=== PATIENT | male | born 1960 | race Caucasian/White ===

== ENCOUNTER → 2019-12-03 | Outpatient (CLI) | payer MEDICARE | END | disposition home or self-care (01) | LOC: RAD 08:01 | PROVIDERS: ATTEND Orthopaedic Surgery | DX: M50.121 Cervical disc disorder at C4-C5 level with radiculopathy (principal); M48.02 Spinal stenosis, cervical region | CPT/HCPCS: 72141 ==

== ENCOUNTER → 2019-12-05 | Outpatient (CLI) | payer MEDICARE | END | disposition home or self-care (01) | LOC: RAD 08:08 | PROVIDERS: ATTEND Orthopaedic Surgery | DX: M50.322 Other cervical disc degeneration at C5-C6 level (principal) | CPT/HCPCS: 72050 ==

== ENCOUNTER 2019-12-10 10:08 | Emergency (ER) | payer MEDICARE ==
[~2019-12-10] VITALS: Ht 172.7 cm; Wt 98.2 kg
--- NOTE | 2019-12-10 10:43 | NUR ---
PATIENT HERE TODAY AT THE REQUEST OF HIS GI DOCTOR DUE TO LOW BP READINGS. PATIENT STATES HE HAS FALLEN TWICE IN THE LAST FEW DAYS, HE GETS UP AND FEELS DIZZY THEN FALLS. PATIENT WAS TOLD TO STOP HIS DIURETIC YESTERDAY BY GI DOCTOR. BP AT THIS TIME IS 86/52, PATIENT A&OX4, NO C/O OF PAIN AT THIS TIME. 20 GAUGE IV STARTED, ERMD AT BEDSIDE FOR EVALUATION.
[2019-12-10] MEDS ORDERED: SODIUM CHLORIDE 0.9% 1,000ML IVBOLUS ONE (11:00)
[2019-12-10] MEDS ORDERED: SODIUM CHLORIDE FLUSH 10ML SYR IVF ONE (11:00)
--- NOTE | 2019-12-10 11:07 | NUR ---
URINE SAMPLE COLLECTED AND SENT TO LAB. 1L FLUID BOLUS STARTED.
[2019-12-10 11:19] LABS: MICROSCOPIC NOT IND
[2019-12-10 11:20] LABS: ALANINE AMINOTRANSFERASE 34 U/L (12-78); ALBUMIN 3.5 g/dL (3.4-5.0); ANION GAP 6 mmol/L (5-15); CALCIUM 8.9 mg/dL (8.5-10.1); CHLORIDE 105 mmol/L (98-107); CREATININE 1.23 mg/dL (0.7-1.3)
[2019-12-10 11:24] LABS: ALKALINE PHOSPHATASE 84 U/L (45-117); BILIRUBIN,TOTAL 2.2 mg/dL (0.2-1.0); TROPONIN I < 0.015 ng/mL (0.000-0.045)
[2019-12-10 11:30] LABS: MEAN CORPUSCULAR HEMOGLOBIN 35.1 pg (27.5-34.5); MEAN CORPUSCULAR HGB CONC 34.4 g/dL (33.2-36.2); MEAN PLATELET VOLUME 9.3 fL (7.4-10.4); PLATELET COUNT 100 x10^3/uL (130-400); RED BLOOD COUNT 3.93 x10^6/uL (4.38-5.82); RED CELL DISTRIBUTION WIDTH 13.8 % (9.4-14.8)
[2019-12-10 11:32] LABS: MD SCAN
--- NOTE | 2019-12-10 11:32 | NUR ---
PATIENT RESTING COMFORTABLY IN BED READING MAGAZINE. BP UP TO 92/58 FROM 86/52. NO FURTHER NEEDS AT THIS TIME.
[2019-12-10 11:33] LABS: BASOPHILS # (AUTO) 0.03 x10^3/uL (0-0.1); BASOPHILS % (AUTO) 0 % (0-1); EOSINOPHILS # (AUTO) 0.33 x10^3/uL (0-0.4); EOSINOPHILS % (AUTO) 5 % (1-7); LYMPHOCYTES # (AUTO) 1.29 x10^3/uL (1-3.4); LYMPHOCYTES % (AUTO) 19 % (22-44); MONOCYTES # (AUTO) 0.65 x10^3/uL (0.2-0.8); MONOCYTES % (AUTO) 10 % (2-9); NEUTROPHILS # (AUTO) 4.51 x10^3/uL (1.8-6.8); NEUTROPHILS % (AUTO) 66 % (42-75)
--- NOTE | 2019-12-10 12:27 | NUR ---
PATIENT AMBULATED 100 FEET, PATIENT DENIES FEELING DIZZY, STATES; "I FEEL FINE." BP AFTER AMBULATING 98/68, HR 55. NOTIFIED.
[2019-12-10 12:46] VITALS: BP 100/64
--- NOTE | 2019-12-10 13:06 | NUR ---
Patient given discharge instructions and they have confirmed that they understand the instructions. Patient ambulatory with steady gait.
== END 2019-12-10 13:07 | disposition home or self-care (01) ==
LOC: ED 13:00
DX: I95.0 Idiopathic hypotension (principal); K70.31 Alcoholic cirrhosis of liver with ascites; R94.31 Abnormal electrocardiogram [ECG] [EKG]; I10 Essential (primary) hypertension
CPT/HCPCS: 36415; 80053; 81003; 84484; 85025; 93005; 96360; 99285; J7030

== ENCOUNTER 2020-01-31 05:32 | Day surgery (SDC) | payer MEDICARE ==
[~2020-01-31] VITALS: Ht 172.7 cm; Wt 99.0 kg
[~2020-01-31 05:32] MED LIST: FURO40TA6 PO; IRON18TA PO; LACT1CAP37 PO; LEVO125T5 PO; METF500T17 PO; METO25TA35 PO; MULT-449 PO; SPIR100T4 PO
[2020-01-31] MEDS ORDERED: CHLORHEXIDINE 15 ML UDC MM STA (06:04)
[2020-01-31] MEDS ORDERED: LACTATED RINGERS 1,000 ML IV SCH (06:05)
[2020-01-31 06:21] VITALS: BP 101/70
[2020-01-31] MEDS ORDERED: FENTANYL PF 250 MCG/5ML ONE ×3 (06:50→10:44)
[2020-01-31] MEDS ORDERED: EPINEPHRINE 1 MG/ML, 1ML ONE (06:51)
[2020-01-31] MEDS ORDERED: BUPIVACAINE/PF 0.25% ONE (06:51)
[2020-01-31] MEDS ORDERED: ROCURONIUM 10MG/ML,5ML ONE (07:25)
[2020-01-31] MEDS ORDERED: CEFAZOLIN 1,000 MG ONE (07:40)
[2020-01-31] MEDS ORDERED: SUCCINYLCHOLINE 20 MG/ML, 10ML ONE (07:40)
[2020-01-31] MEDS ORDERED: DEXAMETHASONE 4 MG/ML, 1ML ONE (07:40)
[2020-01-31] MEDS ORDERED: PROPOFOL 10 MG/ML, 20ML ONE (07:40)
[2020-01-31] MEDS ORDERED: ONDANSETRON 2MG/ML, 2ML ONE (07:40)
[2020-01-31] MEDS ORDERED: GLYCOPYRROLATE 0.2MG/1ML, 5ML ONE (07:40)
[2020-01-31] MEDS ORDERED: NEOSTIGMINE 1 MG/ML, 10ML ONE (07:40)
[2020-01-31] MEDS ORDERED: PROPOFOL 50 ML ONE ×2 (07:59→08:05)
[2020-01-31] MEDS ORDERED: hydrALAzine 20 MG/ML, 1ML IV PRN (08:00)
[2020-01-31] MEDS ORDERED: ACETAMINOPHEN 325 MG TABLET PO PRN (08:00)
[2020-01-31] MEDS ORDERED: KETOROLAC 30 MG/1 ML IVPush PRN (08:00)
[2020-01-31] MEDS ORDERED: ONDANSETRON 2MG/ML, 2ML IVPush PRN (08:00)
[2020-01-31] MEDS ORDERED: PROMETHAZINE 12.5 MG SUPP PR PRN (08:00)
[2020-01-31] MEDS ORDERED: LORazepam 2 MG/ML, 1ML IVPush PRN (08:00)
[2020-01-31] MEDS ORDERED: EPHEDRINE 50 MG/ML, 1ML IVPush PRN (08:00)
[2020-01-31] MEDS ORDERED: LABETALOL 5MG/ML, 20ML IV PRN (08:00)
[2020-01-31] MEDS ORDERED: HYDROmorphone 1 MG/ML, 1ML INJ IVPush PRN (08:00)
[2020-01-31] MEDS ORDERED: OXYcodone 5 MG/5 ML ORAL.SOL UDC PO PRN (08:00)
[2020-01-31] MEDS ORDERED: FENTANYL PF 100 MCG/2ML ONE (09:46)
[2020-01-31] MEDS: FENTANYL PF 100 MCG/2ML IV PRN ×3 (09:53→10:05)
[2020-01-31] MEDS ORDERED: OXYcodone 5 MG/5 ML ORAL.SOL UDC ONE (09:55)
[2020-01-31] MEDS ORDERED: ACETAMINOPHEN 650 MG/20.3 ML UDC ONE (09:55)
[2020-01-31] MEDS ORDERED: MIDAZOLAM 1 MG/ML, 2ML ONE (10:44)
== END 2020-01-31 11:05 | disposition home or self-care (01) ==
LOC: OUT 05:32
PROVIDERS: ATTEND Surgery
DX: K40.90 Unilateral inguinal hernia, without obstruction or gangrene, not specified as recurrent (principal); Z20.828 Contact with and (suspected) exposure to other viral communicable diseases; D17.6 Benign lipomatous neoplasm of spermatic cord; I10 Essential (primary) hypertension; E11.9 Type 2 diabetes mellitus without complications; E03.9 Hypothyroidism, unspecified; M19.90 Unspecified osteoarthritis, unspecified site; Z79.84 Long term (current) use of oral hypoglycemic drugs; Z79.890 Hormone replacement therapy; Z79.899 Other long term (current) drug therapy; Z87.891 Personal history of nicotine dependence; Z98.890 Other specified postprocedural states; Z82.49 Family history of ischemic heart disease and other diseases of the circulatory system
CPT/HCPCS: 36415; 49505; 80053; 82962; 87635; 88302; C1781; J0171; J0330; J0690; J1100; J2250; J2405; J2704; J2710; J3010; J3490; J7120

== ENCOUNTER → 2020-02-07 | Outpatient (CLI) | payer MEDICARE ==
[~2020-02-07] MED LIST changes: +IBUP-1223 PO
== END | disposition home or self-care (01) ==
LOC: STAR 10:51
PROVIDERS: ATTEND Anesthesiology
DX: Z01.812 Encounter for preprocedural laboratory examination (principal); Z20.828 Contact with and (suspected) exposure to other viral communicable diseases
CPT/HCPCS: 36415; 87635

== ENCOUNTER 2020-02-12 06:16 | Day surgery (SDC) | payer MEDICARE ==
[~2020-02-12] VITALS: Ht 172.7 cm; Wt 103.0 kg
[~2020-02-12 06:16] MED LIST changes: -IBUP-1223 PO
[2020-02-12] MEDS ORDERED: BUPIVACAINE/PF 0.5% ONE (06:50)
[2020-02-12] MEDS ORDERED: LIDOCAINE 1%, 20ML ONE (06:51)
[2020-02-12] MEDS ORDERED: IBUP-1223 PO (07:13)
[2020-02-12 07:16] VITALS: BP 119/72
[2020-02-12] MEDS ORDERED: CHLORHEXIDINE 15 ML UDC MM ONE (07:30)
[2020-02-12] MEDS ORDERED: LACTATED RINGERS 1,000 ML IV SCH (07:30)
[2020-02-12] MEDS ORDERED: MIDAZOLAM 1 MG/ML, 2ML ONE (07:52)
[2020-02-12] MEDS ORDERED: FENTANYL PF 100 MCG/2ML ONE (07:52)
[2020-02-12] MEDS ORDERED: CEFAZOLIN 1,000 MG ONE (08:19)
[2020-02-12] MEDS ORDERED: PROPOFOL 10 MG/ML, 20ML ONE (08:20)
[2020-02-12] MEDS ORDERED: DEXAMETHASONE 4 MG/ML, 1ML ONE (08:20)
[2020-02-12] MEDS ORDERED: ONDANSETRON 2MG/ML, 2ML ONE (08:20)
[2020-02-12] MEDS ORDERED: PHENYLEPHRINE 10 MG/ML ONE (08:20)
[2020-02-12] MEDS ORDERED: MEPERIDINE/PF 25MG/0.5ML IVPush PRN (08:30)
[2020-02-12] MEDS ORDERED: HYDROcodone/APAP 7.5-325MG/15ML UDC PO PRN (08:30)
[2020-02-12] MEDS ORDERED: FENTANYL PF 100 MCG/2ML IV PRN (08:30)
[2020-02-12] MEDS ORDERED: PROMETHAZINE 25 MG/ML, 1ML IVPush PRN (08:30)
[2020-02-12] MEDS ORDERED: KETOROLAC 30 MG/1 ML IVPush PRN (08:30)
[2020-02-12] MEDS ORDERED: OXYcodone 5 MG/5 ML ORAL.SOL UDC PO PRN (08:30)
[2020-02-12] MEDS ORDERED: HYDROmorphone 1 MG/ML, 1ML INJ IVPush PRN (08:30)
== END 2020-02-12 11:00 | disposition home or self-care (01) ==
LOC: OUT 06:16
PROVIDERS: ATTEND Orthopaedic Surgery
DX: G56.02 Carpal tunnel syndrome, left upper limb (principal); G56.23 Lesion of ulnar nerve, bilateral upper limbs; E11.9 Type 2 diabetes mellitus without complications; I10 Essential (primary) hypertension; M19.90 Unspecified osteoarthritis, unspecified site; Z79.84 Long term (current) use of oral hypoglycemic drugs; Z79.890 Hormone replacement therapy; Z79.899 Other long term (current) drug therapy; Z87.891 Personal history of nicotine dependence
CPT/HCPCS: 64718; 64721; 82962; J0690; J1100; J2250; J2370; J2405; J2704; J3010; J7120

== ENCOUNTER 2020-02-27 14:15 | Outpatient (CLI) | payer MEDICARE ==
[~2020-02-27 14:15] MED LIST changes: +IBUP-1223 PO
[2020-02-27] MEDS ORDERED: LIDOCAINE 1%, 10ML ONE (14:23)
[2020-02-27] MEDS ORDERED: ALBUMIN HUMAN 25%, 25GM/100ML ONE (15:07)
== END 2020-02-27 23:59 | disposition home or self-care (01) ==
LOC: RAD 14:15
PROVIDERS: ATTEND Internal Medicine
DX: K70.31 Alcoholic cirrhosis of liver with ascites (principal); F12.90 Cannabis use, unspecified, uncomplicated; F10.21 Alcohol dependence, in remission; Z79.899 Other long term (current) drug therapy; Z87.891 Personal history of nicotine dependence
CPT/HCPCS: 49083; P9047

== ENCOUNTER → 2020-03-20 | Outpatient (CLI) | payer MEDICARE ==
[~2020-03-20] MED LIST changes: +ALBUMIN HUMAN 25%, 25GM/100ML ONE
== END | disposition home or self-care (01) ==
LOC: RAD 13:43
PROVIDERS: ATTEND Internal Medicine
DX: K70.30 Alcoholic cirrhosis of liver without ascites (principal); B18.2 Chronic viral hepatitis C; I85.00 Esophageal varices without bleeding
CPT/HCPCS: 49083; P9047

== ENCOUNTER → 2020-03-20 | Outpatient (CLI) | payer MEDICARE ==
[~2020-03-20] MED LIST changes: -ALBUMIN HUMAN 25%, 25GM/100ML ONE; +LIDOCAINE 1%, 10ML ONE
== END | disposition home or self-care (01) ==
LOC: STAR 14:05
PROVIDERS: ATTEND Orthopaedic Surgery
DX: Z20.828 Contact with and (suspected) exposure to other viral communicable diseases (principal)
CPT/HCPCS: 87635

== ENCOUNTER 2020-03-25 06:25 | Day surgery (SDC) | payer MEDICARE ==
[~2020-03-25] VITALS: Ht 172.7 cm; Wt 99.0 kg
[~2020-03-25 06:25] MED LIST changes: -LIDOCAINE 1%, 10ML ONE
[2020-03-25] MEDS ORDERED: MIDAZOLAM 1 MG/ML, 2ML ONE (07:09)
[2020-03-25] MEDS ORDERED: FENTANYL PF 250 MCG/5ML ONE (07:09)
[2020-03-25] MEDS ORDERED: CEFAZOLIN 1,000 MG ONE (07:11)
[2020-03-25] MEDS ORDERED: PROPOFOL 10 MG/ML, 20ML ONE (07:11)
[2020-03-25 07:41] VITALS: BP 115/76
[2020-03-25 07:51] VITALS: BP 115/76
[2020-03-25] MEDS ORDERED: CHLORHEXIDINE 15 ML UDC MM ONE (08:00)
[2020-03-25] MEDS ORDERED: LIDOCAINE-MPF 1%, 5ML ONE (08:21)
[2020-03-25] MEDS ORDERED: BUPIVACAINE/PF 0.5% ONE ×2 (08:21→09:20)
[2020-03-25] MEDS ORDERED: ONDANSETRON 2MG/ML, 2ML IVPush PRN (08:30)
[2020-03-25] MEDS ORDERED: HYDROmorphone 1 MG/ML, 1ML INJ IVPush PRN (08:30)
[2020-03-25] MEDS ORDERED: LACTATED RINGERS 1,000 ML IV SCH (08:30)
[2020-03-25] MEDS ORDERED: MEPERIDINE/PF 25MG/0.5ML IVPush PRN (08:30)
[2020-03-25] MEDS ORDERED: morphine SULFATE 10 MG/ML, 1ML IVPush PRN (08:30)
[2020-03-25] MEDS ORDERED: OXYcodone 5 MG/5 ML ORAL.SOL UDC PO PRN (08:30)
[2020-03-25] MEDS ORDERED: OXYcodone 5 MG/5 ML ORAL.SOL UDC ONE (10:01)
[2020-03-25] MEDS ORDERED: FENTANYL PF 100 MCG/2ML ONE (10:01)
[2020-03-25] MEDS ORDERED: ACETAMINOPHEN 650 MG/20.3 ML UDC ONE (10:01)
[2020-03-25] MEDS: FENTANYL PF 100 MCG/2ML IV PRN ×2 (10:04→10:13)
[2020-03-25] MEDS ORDERED: ACETAMINOPHEN 325 MG TABLET PO PRN (10:30)
== END 2020-03-25 11:30 | disposition home or self-care (01) ==
LOC: OUT 06:25
PROVIDERS: ATTEND Orthopaedic Surgery
DX: G56.01 Carpal tunnel syndrome, right upper limb (principal); G56.21 Lesion of ulnar nerve, right upper limb; E11.9 Type 2 diabetes mellitus without complications; I10 Essential (primary) hypertension; E07.9 Disorder of thyroid, unspecified; Z79.84 Long term (current) use of oral hypoglycemic drugs; Z79.890 Hormone replacement therapy; Z79.899 Other long term (current) drug therapy; Z87.891 Personal history of nicotine dependence; Z98.890 Other specified postprocedural states; Z82.61 Family history of arthritis
CPT/HCPCS: 64718; 64719; 64721; 82962; 93005; J0690; J2250; J2704; J3010

== ENCOUNTER 2020-04-14 09:16 | Outpatient (CLI) | payer MEDICARE ==
[2020-04-14] MEDS ORDERED: LIDOCAINE 1%, 10ML ONE (09:28)
[2020-04-14] MEDS ORDERED: ALBUMIN HUMAN 25%, 25GM/100ML ONE (10:05)
== END 2020-04-14 23:59 | disposition home or self-care (01) ==
LOC: RAD 09:16
PROVIDERS: ATTEND Internal Medicine
DX: K70.31 Alcoholic cirrhosis of liver with ascites (principal); F12.90 Cannabis use, unspecified, uncomplicated; Z87.891 Personal history of nicotine dependence; Z79.899 Other long term (current) drug therapy
CPT/HCPCS: 49083; P9047

== ENCOUNTER → 2020-05-04 | Outpatient (CLI) | payer MEDICARE, OTHER ==
[~2020-05-04] MED LIST changes: +ALBUMIN HUMAN 25%, 25GM/100ML ONE; +LIDOCAINE 1%, 10ML ONE
== END | disposition home or self-care (01) ==
LOC: RAD 09:28
PROVIDERS: ATTEND Internal Medicine
DX: K70.30 Alcoholic cirrhosis of liver without ascites (principal)
CPT/HCPCS: 49083; P9047

== ENCOUNTER 2020-06-24 08:45 | Outpatient (CLI) | payer MEDICARE ==
[~2020-06-24 08:45] MED LIST changes: -ALBUMIN HUMAN 25%, 25GM/100ML ONE; -LIDOCAINE 1%, 10ML ONE
[2020-06-24] MEDS ORDERED: LIDOCAINE 1%, 10ML ONE (09:00)
[2020-06-24] MEDS ORDERED: SPIR100T4 PO (10:17)
[2020-06-24] MEDS ORDERED: FURO80TA3 PO (10:17)
== END 2020-06-24 23:59 | disposition home or self-care (01) ==
LOC: RAD 08:45
PROVIDERS: ATTEND Internal Medicine
DX: K70.31 Alcoholic cirrhosis of liver with ascites (principal)
CPT/HCPCS: 49083

== ENCOUNTER 2020-06-26 09:29 | Day surgery (SDC) | payer MEDICARE ==
[2020-06-24 11:09] LABS: CALCIUM 8.9 mg/dL (8.5-10.1); CHLORIDE 105 mmol/L (98-107)
[2020-06-24 11:15] LABS: ALANINE AMINOTRANSFERASE 35 U/L (12-78); ALBUMIN 3.1 g/dL (3.4-5.0); ALKALINE PHOSPHATASE 114 U/L (45-117); ANION GAP 6 mmol/L (5-15); BILIRUBIN,TOTAL 1.8 mg/dL (0.2-1.0); CREATININE 1.09 mg/dL (0.7-1.3)
[~2020-06-26] VITALS: Ht 172.7 cm; Wt 97.3 kg
[~2020-06-26 09:29] MED LIST changes: +FURO80TA3 PO
[2020-06-26] MEDS ORDERED: CHLORHEXIDINE 15 ML UDC MM STA (09:37)
[2020-06-26 09:47] VITALS: BP 131/86
[2020-06-26] MEDS ORDERED: LACTATED RINGERS 1,000 ML IV SCH (10:00)
[2020-06-26] MEDS ORDERED: MIDAZOLAM 1 MG/ML, 2ML ONE (11:26)
[2020-06-26] MEDS ORDERED: FENTANYL PF 100 MCG/2ML ONE (11:27)
[2020-06-26] MEDS ORDERED: METOPROLOL 1 MG/ML, 5ML IV PRN (12:30)
[2020-06-26] MEDS ORDERED: PROMETHAZINE 25 MG/ML, 1ML IVPush PRN (12:30)
[2020-06-26] MEDS ORDERED: hydrALAzine 20 MG/ML, 1ML IV PRN (12:30)
[2020-06-26] MEDS ORDERED: ACETAMINOPHEN 325 MG TABLET PO PRN (12:30)
[2020-06-26] MEDS ORDERED: ONDANSETRON 2MG/ML, 2ML IVPush PRN (12:30)
[2020-06-26] MEDS ORDERED: KETOROLAC 30 MG/1 ML IV PRN (12:30)
[2020-06-26] MEDS ORDERED: FENTANYL PF 100 MCG/2ML IV PRN (12:30)
[2020-06-26] MEDS ORDERED: LABETALOL 5MG/ML, 20ML IV PRN (12:30)
[2020-06-26] MEDS ORDERED: DIPHENHYDRAMINE 50 MG/ML, 1ML IVPush PRN (12:30)
[2020-06-26] MEDS ORDERED: HYDROmorphone 1 MG/ML, 1ML INJ IVPush PRN (12:30)
[2020-06-26] MEDS ORDERED: HALOPERIDOL 5 MG/ML IV PRN (12:30)
[2020-06-26] MEDS ORDERED: OXYcodone 5 MG/5 ML ORAL.SOL UDC PO PRN (12:30)
[2020-06-26] MEDS ORDERED: PROPOFOL 10 MG/ML, 20ML ONE (16:40)
[2020-06-26] MEDS ORDERED: PHENYLEPHRINE 10 MG/ML ONE (16:40)
[2020-06-26] MEDS ORDERED: DEXAMETHASONE 4 MG/ML, 1ML ONE (16:40)
[2020-06-26] MEDS ORDERED: ONDANSETRON 2MG/ML, 2ML ONE (16:40)
[2020-06-26] MEDS ORDERED: SUCCINYLCHOLINE 20 MG/ML, 10ML ONE (16:40)
== END 2020-06-26 13:45 | disposition home or self-care (01) ==
LOC: OUT 09:29
PROVIDERS: ATTEND Internal Medicine
DX: I85.10 Secondary esophageal varices without bleeding (principal); K70.30 Alcoholic cirrhosis of liver without ascites; K76.6 Portal hypertension; K31.89 Other diseases of stomach and duodenum; E11.9 Type 2 diabetes mellitus without complications; I10 Essential (primary) hypertension; E03.9 Hypothyroidism, unspecified; F12.90 Cannabis use, unspecified, uncomplicated; Z79.899 Other long term (current) drug therapy; Z98.890 Other specified postprocedural states; Z72.89 Other problems related to lifestyle; Z87.891 Personal history of nicotine dependence; Z82.49 Family history of ischemic heart disease and other diseases of the circulatory system; Z20.822 Contact with and (suspected) exposure to COVID-19
CPT/HCPCS: 36415; 43244; 80053; 82962; 93005; J0330; J1100; J2250; J2370; J2405; J2704; J3010; J7120; U0003

== ENCOUNTER → 2020-07-20 | Day surgery (SDC) | payer MEDICARE, OTHER | END | disposition home or self-care (01) | LOC: RAD 07:03 | PROVIDERS: ATTEND Internal Medicine | DX: K70.31 Alcoholic cirrhosis of liver with ascites (principal); I81 Portal vein thrombosis; K80.50 Calculus of bile duct without cholangitis or cholecystitis without obstruction; R16.1 Splenomegaly, not elsewhere classified; Z79.899 Other long term (current) drug therapy | CPT/HCPCS: 76705 ==

== ENCOUNTER → 2020-07-27 | Outpatient (CLI) | payer MEDICARE, OTHER | END | disposition home or self-care (01) | LOC: RAD 09:49 | PROVIDERS: ATTEND Internal Medicine | DX: K70.31 Alcoholic cirrhosis of liver with ascites (principal); I85.10 Secondary esophageal varices without bleeding; K76.6 Portal hypertension; I81 Portal vein thrombosis | CPT/HCPCS: 37182 ==

== ENCOUNTER 2020-08-20 08:38 | Outpatient (CLI) | payer MEDICARE, OTHER ==
[2020-08-20] MEDS ORDERED: LIDOCAINE 1%, 10ML ONE (08:59)
== END 2020-08-20 23:59 | disposition home or self-care (01) ==
LOC: RAD 08:38
PROVIDERS: ATTEND Internal Medicine
DX: K70.30 Alcoholic cirrhosis of liver without ascites (principal); B18.2 Chronic viral hepatitis C; I85.00 Esophageal varices without bleeding
CPT/HCPCS: 49083

== ENCOUNTER 2020-08-20 09:43 | Day surgery (SDC) | payer MEDICARE, OTHER ==
[~2020-08-20] VITALS: Ht 172.7 cm; Wt 95.1 kg
[2020-08-20] MEDS ORDERED: CHLORHEXIDINE 15 ML UDC PO ONE (10:00)
[2020-08-20] MEDS ORDERED: LACTATED RINGERS 1,000 ML IV SCH (10:00)
[2020-08-20] MEDS ORDERED: CHLORHEXIDINE 15 ML UDC ONE (10:17)
[2020-08-20 10:49] VITALS: BP 117/78
[2020-08-20] MEDS ORDERED: PROPOFOL 10 MG/ML, 20ML ONE ×2 (11:57→12:31)
[2020-08-20] MEDS ORDERED: OXYcodone 5 MG/5 ML ORAL.SOL UDC ONE (13:13)
[2020-08-20] MEDS: FENTANYL PF 100 MCG/2ML IV PRN ×2 (13:15→13:20)
[2020-08-20] MEDS ORDERED: FENTANYL PF 100 MCG/2ML ONE (13:16)
[2020-08-20] MEDS ORDERED: OXYcodone 5 MG/5 ML ORAL.SOL UDC PO PRN (13:30)
== END 2020-08-20 14:32 | disposition home or self-care (01) ==
LOC: OUT 09:43
PROVIDERS: ATTEND Internal Medicine
DX: I85.00 Esophageal varices without bleeding (principal); K76.6 Portal hypertension; K31.89 Other diseases of stomach and duodenum; I10 Essential (primary) hypertension; E11.9 Type 2 diabetes mellitus without complications; E03.9 Hypothyroidism, unspecified; F12.90 Cannabis use, unspecified, uncomplicated; K70.30 Alcoholic cirrhosis of liver without ascites; Z20.822 Contact with and (suspected) exposure to COVID-19; Z98.890 Other specified postprocedural states; Z79.899 Other long term (current) drug therapy; Z87.891 Personal history of nicotine dependence; F10.21 Alcohol dependence, in remission
CPT/HCPCS: 43244; 82962; 87635; J2704; J3010; J7120

== ENCOUNTER 2020-10-28 09:19 | Outpatient (CLI) | payer MEDICARE ==
[~2020-10-28 09:19] MED LIST changes: -ACET-1600 PO; -GLUC1TAB55 PO; -LEVO137T3 PO; -MULT-658 PO; -TRAZ50TA66 PO
[2020-10-28] MEDS ORDERED: SPIR100T4 PO (10:04)
[2020-10-28] MEDS ORDERED: TRAZ50TA66 PO (10:04)
[2020-10-28] MEDS ORDERED: LEVO137T3 PO (10:04)
[2020-10-28] MEDS ORDERED: GLUC1TAB55 PO (10:04)
[2020-10-28] MEDS ORDERED: MULT-658 PO (10:04)
[2020-10-28] MEDS ORDERED: ACET-1600 PO (10:04)
[2020-10-28] MEDS ORDERED: LIDOCAINE-MPF 1%, 5ML ONE (12:02)
[2020-11-03] MEDS ORDERED: MIDAZOLAM 1 MG/ML, 2ML ONE (09:35)
== END 2020-10-28 23:59 | disposition home or self-care (01) ==
LOC: RAD 09:19
PROVIDERS: ATTEND Internal Medicine Gastroenterology
DX: K70.30 Alcoholic cirrhosis of liver without ascites (principal); B18.2 Chronic viral hepatitis C
CPT/HCPCS: 49083

== ENCOUNTER → 2020-10-28 | Outpatient (CLI) | payer MEDICARE ==
[~2020-10-28] MED LIST changes: +ACET-1600 PO; +GLUC1TAB55 PO; -LACT1CAP37 PO; +LACT1CAP47 PO; +LEVO137T3 PO; +MULT-658 PO; +TRAZ50TA66 PO
[2020-10-28 10:18] LABS: BASOPHILS % (AUTO) 1 % (0-1); EOSINOPHILS % (AUTO) 7 % (1-7); LYMPHOCYTES % (AUTO) 16 % (22-44); MEAN CORPUSCULAR HGB CONC 33.8 g/dL (33.2-36.2); MEAN PLATELET VOLUME 8.5 fL (7.4-10.4); MONOCYTES % (AUTO) 12 % (2-9); NEUTROPHILS % (AUTO) 64 % (42-75); PLATELET COUNT 83 x10^3/uL (130-400); RED BLOOD COUNT 4.03 x10^6/uL (4.38-5.82); RED CELL DISTRIBUTION WIDTH 15.3 % (9.4-14.8)
[2020-10-28 10:30] LABS: ALANINE AMINOTRANSFERASE 36 U/L (12-78); ANION GAP 7 mmol/L (5-15); CALCIUM 9.1 mg/dL (8.5-10.1); CHLORIDE 101 mmol/L (98-107); CREATININE 1.17 mg/dL (0.7-1.3); INTERNATIONAL NORMALIZED RATIO 1.16 (0.93-1.1); PROTHROMBIN TIME 12.4 Seconds (9.6-11.5)
[2020-10-28 10:32] LABS: ALKALINE PHOSPHATASE 103 U/L (45-117); BILIRUBIN,TOTAL 2.5 mg/dL (0.2-1.0); TOTAL PROTEIN 6.9 g/dL (6.4-8.2)
== END | disposition home or self-care (01) ==
LOC: STAR 09:15
PROVIDERS: ATTEND Internal Medicine
DX: Z01.812 Encounter for preprocedural laboratory examination (principal); Z20.822 Contact with and (suspected) exposure to COVID-19
CPT/HCPCS: 36415; 80053; 85025; 85610; 85730; 93005; U0003; U0005

== ENCOUNTER 2020-11-03 08:38 | Day surgery (SDC) | payer MEDICARE ==
[~2020-11-03] VITALS: Ht 172.7 cm; Wt 93.8 kg
[~2020-11-03 08:38] MED LIST changes: +ACET-1600 PO; +GLUC1TAB55 PO; +LEVO137T3 PO; +MULT-658 PO; +TRAZ50TA66 PO
[2020-11-03] MEDS ORDERED: CHLORHEXIDINE 15 ML UDC ONE (08:57)
[2020-11-03 09:00] VITALS: BP 117/75
[2020-11-03] MEDS ORDERED: CHLORHEXIDINE 15 ML UDC PO ONE (09:00)
[2020-11-03] MEDS ORDERED: LACTATED RINGERS 1,000 ML IV SCH (09:00)
[2020-11-03] MEDS ORDERED: FENTANYL PF 100 MCG/2ML IV PRN (10:00)
[2020-11-03] MEDS ORDERED: ALBUTEROL SULFATE 2.5 MG/3 ML NPPB PRN (10:00)
[2020-11-03] MEDS ORDERED: hydrALAzine 20 MG/ML, 1ML IV PRN (10:00)
[2020-11-03] MEDS ORDERED: ONDANSETRON 2MG/ML, 2ML IVPush PRN (10:00)
[2020-11-03] MEDS ORDERED: MEPERIDINE/PF 25MG/0.5ML IVPush PRN (10:00)
[2020-11-03] MEDS ORDERED: HYDROmorphone 1 MG/ML, 1ML INJ IV PRN (10:00)
[2020-11-03] MEDS ORDERED: DIAZEPAM 5 MG/ML, 2ML IV PRN ×2 (10:00)
[2020-11-03] MEDS ORDERED: LABETALOL 5MG/ML, 20ML IV PRN (10:00)
[2020-11-03] MEDS ORDERED: OXYcodone 5 MG/5 ML ORAL.SOL UDC PO PRN (10:00)
[2020-11-03] MEDS ORDERED: METOCLOPRAMIDE 5 MG/ML, 2ML IV PRN (10:00)
[2020-11-03] MEDS ORDERED: KETOROLAC 30 MG/1 ML IV PRN (10:00)
[2020-11-03] MEDS ORDERED: PROMETHAZINE 25 MG/ML, 1ML IV PRN (10:00)
[2020-11-03] MEDS ORDERED: FENTANYL PF 100 MCG/2ML ONE (10:25)
== END 2020-11-03 11:45 | disposition home or self-care (01) ==
LOC: OUT 08:38
PROVIDERS: ATTEND Internal Medicine
DX: K70.31 Alcoholic cirrhosis of liver with ascites (principal); I85.10 Secondary esophageal varices without bleeding; K76.6 Portal hypertension; K31.89 Other diseases of stomach and duodenum; I10 Essential (primary) hypertension; E11.9 Type 2 diabetes mellitus without complications; E03.9 Hypothyroidism, unspecified; G47.00 Insomnia, unspecified; M85.80 Other specified disorders of bone density and structure, unspecified site; Z79.84 Long term (current) use of oral hypoglycemic drugs; Z79.890 Hormone replacement therapy; Z79.899 Other long term (current) drug therapy; Z87.891 Personal history of nicotine dependence
CPT/HCPCS: 43244; 82962; J3010; J7120; J2250

== ENCOUNTER 2020-11-11 11:38 | Outpatient (CLI) | payer MEDICARE ==
[2020-11-11] MEDS ORDERED: GADOTERATE 10 MMOL/20ML SYR ONE (17:01)
== END 2020-11-11 23:59 | disposition home or self-care (01) ==
LOC: RAD 11:38
PROVIDERS: ATTEND Orthopaedic Surgery
DX: Z01.818 Encounter for other preprocedural examination (principal); S46.111A Strain of muscle, fascia and tendon of long head of biceps, right arm, initial encounter; K44.9 Diaphragmatic hernia without obstruction or gangrene; K70.30 Alcoholic cirrhosis of liver without ascites; B18.2 Chronic viral hepatitis C; M75.101 Unspecified rotator cuff tear or rupture of right shoulder, not specified as traumatic; R18.8 Other ascites; I85.00 Esophageal varices without bleeding; I86.4 Gastric varices; M85.80 Other specified disorders of bone density and structure, unspecified site; G47.00 Insomnia, unspecified; M75.51 Bursitis of right shoulder; M19.011 Primary osteoarthritis, right shoulder; Y93.89 Activity, other specified; Y92.89 Other specified places as the place of occurrence of the external cause; Y99.8 Other external cause status; M51.36 Other intervertebral disc degeneration, lumbar region; M47.816 Spondylosis without myelopathy or radiculopathy, lumbar region; X58.XXXA Exposure to other specified factors, initial encounter
CPT/HCPCS: 72197; 73221; 74183; A9575

== ENCOUNTER 2020-11-11 11:39 | Outpatient (CLI) | payer MEDICARE | END 2020-11-11 23:59 | disposition home or self-care (01) | LOC: RAD 11:39 | PROVIDERS: ATTEND Orthopaedic Surgery | DX: Z02.9 Encounter for administrative examinations, unspecified (principal) ==

== ENCOUNTER 2020-12-17 10:41 | Inpatient (IN) | payer MEDICARE ==
[~2020-12-17] VITALS: Ht 172.7 cm; Wt 98.7 kg
--- NOTE | 2020-12-17 10:52 | NUR ---
marketing sales supervisor note: EKG completed in triage.
--- NOTE | 2020-12-17 11:08 | NUR ---
PT HAS CO SOB, WEAKNESS, MUSCLE PAIN IN [place]. LOSS OF TASTE, SMELL,. NO N/V. SOME VISION BLURRINESS. LAST COVID VAX IN AUGUST.
[2020-12-17 12:08] LABS: BASOPHILS % (AUTO) 0 % (0-1); EOSINOPHILS % (AUTO) 1 % (1-7); LYMPHOCYTES % (AUTO) 7 % (22-44); MEAN CORPUSCULAR HEMOGLOBIN 33.5 pg (27.5-34.5); MEAN CORPUSCULAR HGB CONC 34.5 g/dL (33.2-36.2); MEAN PLATELET VOLUME 9.2 fL (7.4-10.4); MONOCYTES % (AUTO) 11 % (2-9); NEUTROPHILS % (AUTO) 82 % (42-75); PLATELET COUNT 79 x10^3/uL (130-400); RED BLOOD COUNT 4.79 x10^6/uL (4.38-5.82); RED CELL DISTRIBUTION WIDTH 14.6 % (9.4-14.8)
[2020-12-17 12:22] LABS: ALBUMIN 3.7 g/dL (3.4-5.0); CALCIUM 9.8 mg/dL (8.5-10.1); CHLORIDE 68 mmol/L (98-107)
[2020-12-17 12:29] LABS: ALANINE AMINOTRANSFERASE 77 U/L (12-78); ALKALINE PHOSPHATASE 125 U/L (45-117); BILIRUBIN,TOTAL 9.7 mg/dL (0.2-1.0); CREATININE 2.11 mg/dL (0.7-1.3); TROPONIN I < 0.015 ng/mL (0.000-0.045)
[2020-12-17 12:30] LABS: ANION GAP 20 mmol/L (5-15)
[2020-12-17 12:37] LABS: MICROSCOPIC INDICATED
--- NOTE | 2020-12-17 12:47 | NUR ---
CRITICAL VALUES CALLED BY LAB, AWARE. 500 NS BOLUS INFUSING. PT ON CARD MONITOR. TO BE ADMITTED TO HOSPITAL. PT A&OX4, FEELS THIRSTY AND WEAK
[2020-12-17] MEDS ORDERED: SODIUM CHLORIDE 0.9% 1,000ML IVBOLUS ONE (13:00)
[2020-12-17] MEDS ORDERED: CEFTRIAXONE 1,000 MG in DEXTROSE 5% 50 ML IVPB ONE (13:00)
[2020-12-17] MEDS ORDERED: AZITHROMYCIN 500 MG in SODIUM CHLORIDE 0.9% 250 ML IV ONE (13:00)
--- NOTE | 2020-12-17 13:04 | NUR ---
SECOND PIV, BLOOD CULTURES AND LABS
[2020-12-17] MEDS ORDERED: GLUC1TAB55 PO (13:14)
--- NOTE | 2020-12-17 13:23 | NUR ---
THROUGHPUT RN: SPOKE WITH MEÑO GAONAWARP HAULER AT [facility]. "WE ARE FULL" DECLINED TO TRANSFER PT.
--- NOTE | 2020-12-17 13:24 | NUR ---
PT TO IMAGING.
[2020-12-17] MEDS: AZITHROMYCIN 500 MG in SODIUM CHLORIDE 0.9% 250 ML IV SCH (13:30)
[2020-12-17] MEDS: CEFTRIAXONE 1,000 MG in DEXTROSE 5% 50 ML IVPB SCH (13:30)
[2020-12-17] MEDS ORDERED: OMNIPAQUE 350 MG/ML, 100ML BOTTLE ONE (13:47)
--- NOTE | 2020-12-17 14:40 | NUR ---
[facility] CALLED FOR INFO. PT OK TO GIVE INFORMATION
--- NOTE | 2020-12-17 14:41 | NUR ---
PT AMUBLATED TO BATHROOM FOR BM. RN ASSISTED TO PREVENT FALL
--- NOTE | 2020-12-17 15:22 | NUR ---
PT RESTING, GIVEN WARM BLANKETS. WAITING TO SEE HOSPITALIST
--- NOTE | 2020-12-17 15:41 | NUR ---
PT AMBULATED TO BATHROOM
[2020-12-17] MEDS ORDERED: INSULIN SINGLE DOSE, ER ONE (15:54)
[2020-12-17] MEDS ORDERED: REGULAR INSULIN 100 UNITS in SODIUM CHLORIDE 0.9% 99 ML IV PRN ×2 (16:00→17:00)
[2020-12-17] MEDS ORDERED: INSULIN REGULAR 100 UNITS/ML, 3ML VIAL IVPush ONE (16:00)
--- NOTE | 2020-12-17 16:27 | NUR ---
TASK RN NOTE: PT LAYING ON SIDE IN BED, RESPIRATIONS EVEN AND UNLABORED ON RA. RN AWAITING INSULIN DRIP FROM PHARMACY. NAD NOTED AT THIS TIME.
[2020-12-17 16:28] LABS: ALBUMIN 3.2 g/dL (3.4-5.0); ANION GAP 15 mmol/L (5-15); CALCIUM 9.4 mg/dL (8.5-10.1); CHLORIDE 72 mmol/L (98-107); CREATININE 1.76 mg/dL (0.7-1.3)
--- NOTE | 2020-12-17 16:43 | NUR ---
TASK RN NOTE: CALL TO DR BARAJAS REGARDING PT'S NEW LABS. PER DR BARAJAS INSULIN DRIP WILL FOLLOW NON-DKA PROTOCOL. RN CALLED PHARMACY TO REQUEST UPDATED PROTOCOL. PHARMACIST UPDATING TO NON DKA AT THIS TIME. PRIMARY RN AWARE.
--- NOTE | 2020-12-17 17:30 | NUR ---
Duy carvajal in ED - 12/17/20 at 1 by SANAZ PER PROTOCOL. [phone] CHANGE IN GLUCOSE. HOLD INSULIN DRIP BY 30 MIN THEN DECREASE INFUSION BY 2 U/HR
--- NOTE | 2020-12-17 18:06 | NUR ---
SEEN BY MD BARAJAS. WANTS INSULING GTT AT 6U/HR. OK TO HAVE CLEAR LIQUID DIET
--- NOTE | 2020-12-17 18:52 | NUR ---
PER MD BARAJAS. BMP Q4HRS. TO CALL CRITICAL CARE MD FOR NOC W RESULTS OF BMP. Q1 HR POC WHILE ON INSULIN DRIP. START 3% SALINE AT 20 ML/HR
[2020-12-17] MEDS ORDERED: PHARMACY MAY ADJ FOR RENAL FX MC PRN (19:00)
[2020-12-17] MEDS ORDERED: SODIUM CHLORIDE 3% 500 ML IV PRN (19:00)
--- NOTE | 2020-12-17 19:30 | NUR ---
PER PROTOCOL. [phone] CHANGE IN GLUCOSE. HOLD INSULIN DRIP BY 30 MIN THEN DECREASE INFUSION BY 2 U/HR
--- NOTE | 2020-12-17 20:00 | NUR ---
POC 499. RESTART INSULIN AT 830 AT 4 U/HR
--- NOTE | 2020-12-17 20:26 | NUR ---
PT INFORMED THAT A URINE SAMPLE IS NEEDED.
--- NOTE | 2020-12-17 21:02 | NUR ---
REPORT TO SHAZIA
[2020-12-17 21:27] LABS: CHLORIDE,URINE RANDOM < 10 mmol/L; POTASSIUM,URINE RANDOM 16 mmol/L; SODIUM,URINE RANDOM 12 mmol/L
[2020-12-17 23:27] VITALS: BP 100/68
[2020-12-17 23:55] LABS: CALCIUM 9.6 mg/dL (8.5-10.1); CHLORIDE 80 mmol/L (98-107); CREATININE 1.54 mg/dL (0.7-1.3)
[2020-12-18 00:01] LABS: ANION GAP 15 mmol/L (5-15)
[2020-12-18 03:49] VITALS: BP 106/76
[2020-12-18 05:10] LABS: BASOPHILS % (AUTO) 0 % (0-1); EOSINOPHILS % (AUTO) 3 % (1-7); LYMPHOCYTES % (AUTO) 11 % (22-44); MEAN CORPUSCULAR HGB CONC 35.6 g/dL (33.2-36.2); MEAN PLATELET VOLUME 8.4 fL (7.4-10.4); MONOCYTES % (AUTO) 12 % (2-9); NEUTROPHILS % (AUTO) 74 % (42-75); PLATELET COUNT 66 x10^3/uL (130-400); RED BLOOD COUNT 4.61 x10^6/uL (4.38-5.82); RED CELL DISTRIBUTION WIDTH 14.6 % (9.4-14.8)
[2020-12-18 05:20] LABS: ALANINE AMINOTRANSFERASE 75 U/L (12-78); ALBUMIN 3.2 g/dL (3.4-5.0); CALCIUM 9.7 mg/dL (8.5-10.1); CHLORIDE 81 mmol/L (98-107); CREATININE 1.32 mg/dL (0.7-1.3)
[2020-12-18 05:26] LABS: ANION GAP 14 mmol/L (5-15)
[2020-12-18 05:47] LABS: ALKALINE PHOSPHATASE 111 U/L (45-117); BILIRUBIN,TOTAL 6.7 mg/dL (0.2-1.0); TOTAL PROTEIN 7.2 g/dL (6.4-8.2)
[2020-12-18] MEDS: LEVOTHYROXINE 137 MCG TABLET PO SCH (08:54)
[2020-12-18] MEDS ORDERED: GLUCAGON 1 MG IM PRN (10:30)
[2020-12-18] MEDS ORDERED: INSULIN GLARGINE 100 UNITS/ML, PEN SQ-INSULIN SCH (10:30)
[2020-12-18] MEDS ORDERED: DEXTROSE 50%, 50ML SYRINGE IVPush PRN (10:30)
[2020-12-18] MEDS ORDERED: DEXTROSE 4 GM TAB.CHEW PO PRN (10:30)
[2020-12-18 11:12] LABS: CHLORIDE 82 mmol/L (98-107)
[2020-12-18 11:13] LABS: ANION GAP 13 mmol/L (5-15); CALCIUM 9.5 mg/dL (8.5-10.1); CREATININE 1.33 mg/dL (0.7-1.3)
[2020-12-18] MEDS ORDERED: FUROSEMIDE 40 MG/4 ML ONE (11:52)
[2020-12-18] MEDS: INSULIN LISPRO 100 UNITS/ML, PEN SQ-INSULIN SCH ×3 (11:59→21:00)
[2020-12-18] MEDS ORDERED: FUROSEMIDE 40 MG/4 ML IV ONE (12:00)
[2020-12-18] MEDS: CEFTRIAXONE 1,000 MG in DEXTROSE 5% 50 ML IVPB SCH (13:09)
[2020-12-18] MEDS: AZITHROMYCIN 500 MG in SODIUM CHLORIDE 0.9% 250 ML IV SCH (13:48)
[2020-12-18 17:01] LABS: CHLORIDE 80 mmol/L (98-107)
[2020-12-18 17:03] LABS: ANION GAP 13 mmol/L (5-15); CALCIUM 8.8 mg/dL (8.5-10.1); CREATININE 1.52 mg/dL (0.7-1.3)
[2020-12-18] MEDS ORDERED: SODIUM CHLORIDE 3% 500 ML IV PRN (17:30)
[2020-12-18] MEDS: SODIUM CHLORIDE FLUSH 10ML SYR IVF SCH (21:00)
[2020-12-18 21:33] LABS: CALCIUM 8.9 mg/dL (8.5-10.1); CHLORIDE 82 mmol/L (98-107); CREATININE 1.54 mg/dL (0.7-1.3)
[2020-12-18 21:51] LABS: ANION GAP 15 mmol/L (5-15)
[2020-12-18] MEDS ORDERED: REGULAR INSULIN 100 UNITS in SODIUM CHLORIDE 0.9% 99 ML IV PRN (22:00)
[2020-12-18] MEDS: INSULIN GLARGINE 100 UNITS/ML, PEN SQ-INSULIN SCH (22:20)
[2020-12-19 02:37] LABS: CALCIUM 8.7 mg/dL (8.5-10.1); CHLORIDE 84 mmol/L (98-107); CREATININE 1.39 mg/dL (0.7-1.3)
[2020-12-19 02:44] LABS: ANION GAP 13 mmol/L (5-15)
[2020-12-19] MEDS: INSULIN LISPRO 100 UNITS/ML, PEN SQ-INSULIN SCH ×4 (07:00→20:54)
[2020-12-19 07:17] LABS: BASOPHILS % (AUTO) 0 % (0-1); EOSINOPHILS % (AUTO) 3 % (1-7); LYMPHOCYTES % (AUTO) 11 % (22-44); MEAN CORPUSCULAR HEMOGLOBIN 32.8 pg (27.5-34.5); MEAN CORPUSCULAR HGB CONC 35.2 g/dL (33.2-36.2); MEAN PLATELET VOLUME 8.1 fL (7.4-10.4); MONOCYTES % (AUTO) 13 % (2-9); NEUTROPHILS % (AUTO) 73 % (42-75); RED CELL DISTRIBUTION WIDTH 14.7 % (9.4-14.8)
[2020-12-19 07:29] LABS: ANION GAP 11 mmol/L (5-15); CALCIUM 8.9 mg/dL (8.5-10.1); CHLORIDE 86 mmol/L (98-107)
[2020-12-19 07:37] LABS: PLATELET COUNT 70 x10^3/uL (130-400)
[2020-12-19] MEDS: INSULIN GLARGINE 100 UNITS/ML, PEN SQ-INSULIN SCH ×2 (09:46→20:53)
[2020-12-19] MEDS: SODIUM CHLORIDE FLUSH 10ML SYR IVF SCH ×2 (09:48→21:00)
[2020-12-19] MEDS: LEVOTHYROXINE 137 MCG TABLET PO SCH (09:52)
[2020-12-19 11:43] LABS: ANION GAP 13 mmol/L (5-15); CALCIUM 8.6 mg/dL (8.5-10.1); CHLORIDE 83 mmol/L (98-107); CREATININE 1.29 mg/dL (0.7-1.3)
[2020-12-19] MEDS: AZITHROMYCIN 500 MG in SODIUM CHLORIDE 0.9% 250 ML IV SCH (14:13)
[2020-12-19] MEDS: CEFTRIAXONE 1,000 MG in DEXTROSE 5% 50 ML IVPB SCH (14:13)
[2020-12-19 14:29] LABS: POTASSIUM,URINE RANDOM 29 mmol/L
[2020-12-19 14:30] LABS: CHLORIDE,URINE RANDOM < 10 mmol/L; SODIUM,URINE RANDOM < 5 mmol/L
[2020-12-19] MEDS ORDERED: BISACODYL 10 MG SUPP PR PRN (14:30)
[2020-12-19] MEDS ORDERED: DOCUSATE 50 MG/5 ML, 10ML UDC PO PRN (14:30)
[2020-12-19 15:57] LABS: ANION GAP 13 mmol/L (5-15); CALCIUM 8.4 mg/dL (8.5-10.1); CHLORIDE 82 mmol/L (98-107); CREATININE 1.28 mg/dL (0.7-1.3)
[2020-12-19 19:29] LABS: ANION GAP 11 mmol/L (5-15); CALCIUM 8.8 mg/dL (8.5-10.1); CHLORIDE 83 mmol/L (98-107); CREATININE 1.36 mg/dL (0.7-1.3)
[2020-12-19] MEDS ORDERED: DIPHENHYDRAMINE 25 MG CAPSULE PO ONE (22:00)
[2020-12-19] MEDS: MELATONIN 5 MG TABLET PO SCH (22:04)
[2020-12-19 23:58] LABS: ANION GAP 11 mmol/L (5-15); CALCIUM 8.6 mg/dL (8.5-10.1); CHLORIDE 85 mmol/L (98-107); CREATININE 1.18 mg/dL (0.7-1.3)
[2020-12-20] MEDS ORDERED: DIPHENHYDRAMINE 25 MG CAPSULE PO ONE ×2 (02:30→13:00)
[2020-12-20 03:51] LABS: ANION GAP 11 mmol/L (5-15); CALCIUM 8.9 mg/dL (8.5-10.1); CHLORIDE 87 mmol/L (98-107); CREATININE 1.11 mg/dL (0.7-1.3)
[2020-12-20] MEDS: POLYETHYLENE GLYCOL 17 GM PACKET PO SCH ×3 (06:25→20:53)
[2020-12-20] MEDS: INSULIN LISPRO 100 UNITS/ML, PEN SQ-INSULIN SCH ×3 (07:00→16:08)
[2020-12-20 07:54] LABS: ANION GAP 10 mmol/L (5-15); CALCIUM 8.9 mg/dL (8.5-10.1); CHLORIDE 87 mmol/L (98-107); CREATININE 1.06 mg/dL (0.7-1.3)
[2020-12-20] MEDS: LEVOTHYROXINE 137 MCG TABLET PO SCH (09:14)
[2020-12-20] MEDS: INSULIN GLARGINE 100 UNITS/ML, PEN SQ-INSULIN SCH (09:16)
[2020-12-20] MEDS: SODIUM CHLORIDE FLUSH 10ML SYR IVF SCH ×2 (09:16→23:59)
[2020-12-20 12:30] LABS: ANION GAP 11 mmol/L (5-15); CALCIUM 8.5 mg/dL (8.5-10.1); CHLORIDE 84 mmol/L (98-107); CREATININE 1.17 mg/dL (0.7-1.3)
[2020-12-20] MEDS ORDERED: DIPHENHYDRAMINE 25 MG CAPSULE ONE (12:55)
[2020-12-20] MEDS: AZITHROMYCIN 500 MG in SODIUM CHLORIDE 0.9% 250 ML IV SCH (12:57)
[2020-12-20] MEDS: CEFTRIAXONE 1,000 MG in DEXTROSE 5% 50 ML IVPB SCH (14:30)
[2020-12-20 19:44] LABS: ANION GAP 6 mmol/L (5-15); CALCIUM 8.3 mg/dL (8.5-10.1); CHLORIDE 86 mmol/L (98-107)
[2020-12-20 19:46] VITALS: BP 110/70
[2020-12-20] MEDS: MELATONIN 5 MG TABLET PO SCH (20:53)
[2020-12-20 23:42] LABS: ANION GAP 10 mmol/L (5-15); CALCIUM 7.9 mg/dL (8.5-10.1); CHLORIDE 87 mmol/L (98-107); CREATININE 1.17 mg/dL (0.7-1.3)
[2020-12-21 01:18] VITALS: BP 107/65
[2020-12-21 06:04] LABS: CHLORIDE 89 mmol/L (98-107)
[2020-12-21 06:17] LABS: ANION GAP 10 mmol/L (5-15); CALCIUM 8.8 mg/dL (8.5-10.1); CREATININE 1.07 mg/dL (0.7-1.3)
[2020-12-21 06:18] LABS: ALANINE AMINOTRANSFERASE 96 U/L (12-78); ALBUMIN 2.9 g/dL (3.4-5.0); ALKALINE PHOSPHATASE 118 U/L (45-117); BILIRUBIN,TOTAL 6.1 mg/dL (0.2-1.0); TOTAL PROTEIN 6.8 g/dL (6.4-8.2)
[2020-12-21] MEDS: INSULIN LISPRO 100 UNITS/ML, PEN SQ-INSULIN SCH ×5 (07:00→20:25)
[2020-12-21 07:58] VITALS: BP 100/62
[2020-12-21] MEDS: INSULIN GLARGINE 100 UNITS/ML, PEN SQ-INSULIN SCH ×3 (08:25→11:32)
[2020-12-21] MEDS: SODIUM CHLORIDE FLUSH 10ML SYR IVF SCH ×2 (08:25→20:17)
[2020-12-21] MEDS: LEVOTHYROXINE 137 MCG TABLET PO SCH (08:29)
[2020-12-21] MEDS: POLYETHYLENE GLYCOL 17 GM PACKET PO SCH ×2 (08:30→20:17)
[2020-12-21] MEDS: CEFTRIAXONE 1,000 MG in DEXTROSE 5% 50 ML IVPB SCH (13:15)
[2020-12-21 13:40] VITALS: BP 108/68
[2020-12-21] MEDS: AZITHROMYCIN 500 MG in SODIUM CHLORIDE 0.9% 250 ML IV SCH (14:06)
[2020-12-21 18:59] VITALS: BP 100/65
[2020-12-21] MEDS: MELATONIN 5 MG TABLET PO SCH (20:17)
[2020-12-21] MEDS ORDERED: INSULIN GLARGINE 100 UNITS/ML, PEN SQ-INSULIN SCH (21:00)
[2020-12-22 01:08] VITALS: BP 99/66
[2020-12-22] MEDS: INSULIN LISPRO 100 UNITS/ML, PEN SQ-INSULIN SCH ×2 (07:00→11:03)
[2020-12-22 07:29] VITALS: BP 104/66
[2020-12-22 07:36] LABS: ALBUMIN 2.9 g/dL (3.4-5.0); ANION GAP 7 mmol/L (5-15); CALCIUM 8.7 mg/dL (8.5-10.1); CHLORIDE 93 mmol/L (98-107); CREATININE 1.05 mg/dL (0.7-1.3)
[2020-12-22 07:38] LABS: BASOPHILS % (AUTO) 0 % (0-1); EOSINOPHILS % (AUTO) 4 % (1-7); LYMPHOCYTES % (AUTO) 14 % (22-44); MEAN CORPUSCULAR HEMOGLOBIN 32.6 pg (27.5-34.5); MEAN CORPUSCULAR HGB CONC 34.3 g/dL (33.2-36.2); MEAN PLATELET VOLUME 8.7 fL (7.4-10.4); MONOCYTES % (AUTO) 18 % (2-9); NEUTROPHILS % (AUTO) 64 % (42-75); RED BLOOD COUNT 4.42 x10^6/uL (4.38-5.82); RED CELL DISTRIBUTION WIDTH 14.6 % (9.4-14.8)
[2020-12-22 08:09] LABS: PLATELET COUNT 55 x10^3/uL (130-400)
[2020-12-22] MEDS: SODIUM CHLORIDE FLUSH 10ML SYR IVF SCH (09:00)
[2020-12-22] MEDS: POLYETHYLENE GLYCOL 17 GM PACKET PO SCH (09:00)
[2020-12-22] MEDS: LEVOTHYROXINE 137 MCG TABLET PO SCH (09:03)
[2020-12-22] MEDS: INSULIN GLARGINE 100 UNITS/ML, PEN SQ-INSULIN SCH (09:04)
[2020-12-22 13:14] VITALS: BP 101/69
[2020-12-22] MEDS ORDERED: METF500T17 PO (13:41)
[2020-12-22 15:32] VITALS: BP 118/72
== END 2020-12-22 16:19 | disposition home or self-care (01) | DRG 637 ==
LOC: ED 10:44 → EDIP 12:45 → SUATTDRO 13:18 → CCU 21:11 → 3N 12-20 16:15
PROVIDERS: ADMIT Internal Medicine; ATTEND Internal Medicine
DX: E11.00 Type 2 diabetes mellitus with hyperosmolarity without nonketotic hyperglycemic-hyperosmolar coma (NKHHC) (principal); N17.0 Acute kidney failure with tubular necrosis; E87.1 Hypo-osmolality and hyponatremia; E87.2 Acidosis; J98.11 Atelectasis; Z20.822 Contact with and (suspected) exposure to COVID-19; K70.31 Alcoholic cirrhosis of liver with ascites; D69.6 Thrombocytopenia, unspecified; D75.89 Other specified diseases of blood and blood-forming organs; E03.9 Hypothyroidism, unspecified; E11.649 Type 2 diabetes mellitus with hypoglycemia without coma; E87.5 Hyperkalemia; E88.09 Other disorders of plasma-protein metabolism, not elsewhere classified; F12.90 Cannabis use, unspecified, uncomplicated; I10 Essential (primary) hypertension; Z87.891 Personal history of nicotine dependence; Z79.899 Other long term (current) drug therapy
CPT/HCPCS: 36415; 71045; 71275; 76770; 80048; 80053; 80069; 81001; 82040; 82436; 82607; 82947; 82962; 83605; 83735; 83930; 83935; 84100; 84132; 84133; 84300; 84443; 84484; 85025; 87040; 87081; 93005; 96365; 96366; 96368; 96375; G0378; J0456; J0696; J1940; Q9967; U0005; J1815; J7030; J7050; Q0163; U0003